=== PATIENT | female | born 1945 | race Caucasian/White ===

== ENCOUNTER → 2016-12-15 | Outpatient (CLI) | payer MEDICARE, OTHER | END | disposition home or self-care (01) | LOC: CDC 10:35 | DX: Z01.810 Encounter for preprocedural cardiovascular examination (principal); C50.912 Malignant neoplasm of unspecified site of left female breast | CPT/HCPCS: 93000 ==

== ENCOUNTER 2017-02-08 06:52 | Day surgery (SDC) | payer OTHER ==
[~2017-02-08] VITALS: Ht 160 cm; Wt 63.0 kg
[~2017-02-08 06:52] MED LIST: ALEVE220 M2 PO; CITRACAL W/V1 TABLE1 PO; FLONASE16 G1 BOTH NARES; OMEPRAZOLE40 M1 PO; ONE DAILY FOR1 EAC3 PO; PERCOCET 5/31 TABLET PO; TYLENOL REGULA325 MG PO
[2017-02-08 07:41] VITALS: BP 150/88
[2017-02-08 11:23] VITALS: BP 157/91
[2017-02-08 11:57] VITALS: BP 162/91
== END 2017-02-08 12:20 | disposition home or self-care (01) ==
LOC: SDC 06:52
PROC: 02HV33Z Insertion of Infusion Device into Superior Vena Cava, Percutaneous Approach (ICD-10-PCS; principal; 2017-02-08)
DX: I87.8 Other specified disorders of veins (principal); C50.912 Malignant neoplasm of unspecified site of left female breast; Z90.12 Acquired absence of left breast and nipple; K21.9 Gastro-esophageal reflux disease without esophagitis; Z80.3 Family history of malignant neoplasm of breast
CPT/HCPCS: 71010; C1751; C1769; J0690; J1100; J2250; J2405; J3010